=== PATIENT | female | born 1965 | race Hispanic/Latino ===

== ENCOUNTER 2023-05-19 09:19 | Emergency (ER) | payer SELFPAY ==
[2023-05-19 10:08] LABS: Absolute Lymphocytes (CBC) 1.4 K/uL (0.7-4.9); Hematocrit 40.8 % (36.0-45.0); Lymphocytes % 21.8 % (15.3-44.8); MPV 9.7 fL (7.6-11.3)
[2023-05-19 10:14] LABS: Protime INR 1.08
[2023-05-19 10:28] LABS: Magnesium 2.1 mg/dL (1.6-2.4); Potassium 3.7 mEq/L (3.5-5.1); Troponin High Sensitivity 5.4 pg/mL (<58.9)
[2023-05-19 11:06] LABS: Specific Gravity 1.019 (1.005-1.030); Urine Bacteria None Seen /HPF (<20); Urine Bilirubin NEGATIVE (Negative); Urine Blood 1+ (Negative); Urine Clarity Clear (Clear); Urine Color Colorless (Yellow); Urine Glucose NEGATIVE (Negative); Urine Protein NEGATIVE (Negative); Urine RBC <5 /HPF (None Seen); Urine Urobilinogen Normal (Normal)
--- NOTE | 2023-05-19 11:09 | RAD REPORT ---
EXAM DESCRIPTION: CT - Angio Aorta For Dissection - 05/19/2023 10:39 am CLINICAL HISTORY: . Chest and abd pain COMPARISON: None TECHNIQUE: Computed tomography angiography of the chest, abdomen pelvis were obtained. 100 cc Isovue 370 was administered intravenously. Coronal and sagittal reconstruction were performed. MIP 3D reconstruction was performed All CT scans are performed using dose optimization technique as appropriate and may include automated exposure control or mA/KV adjustment according to patient size. FINDINGS: An aortic dissection is not seen. An aortic aneurysm is not displayed. The aorta is tortu ous The celiac, SMA and JUWAN are patent . A lung consolidation is not present. A pericardial effusion is not seen. A pleural effusion is not no citlali. The liver,spleen, pancreas,adrenals and kidneys demonstrate no significant abnormality. There appear to be a left upper quadrant coils perhaps within splenic artery There no evidence diverticulitis. Normal appendix IMPRESSION: Negative for an aortic dissection.
[2023-05-19 11:11] LABS: Barbiturates NEGATIVE (NEGATIVE); Benzodiazepines NEGATIVE (NEGATIVE); Cocaine NEGATIVE (NEGATIVE); METHAMPHETAM NEGATIVE (NEGATIVE); Methadone NEGATIVE (NEGATIVE); Opiates NEGATIVE (NEGATIVE); Phencyclidine NEGATIVE (NEGATIVE); THC Cannibis NEGATIVE (NEGATIVE)
--- NOTE | 2023-05-19 11:11 | RAD REPORT ---
EXAM DESCRIPTION: [facility] Single View05/19/2023 10:40 am CLINICAL HISTORY: Chest pain COMPARISON: none FINDINGS: The lungs appear clear of acute infiltrate. The heart is normal size. Aorta is tortuous IMPRESSION: No acute abnormalities displayed
--- NOTE | 2023-05-19 11:38 | ER ---
Nurse's Notes [facility] Name: Irena Zapata Age: 58 yrs Sex: Female : 1965 Arrival Date: 05/19/2023 Time: 09:19 Bed 20 Private MD: Diagnosis: Chest pain, unspecified Presentation: 05/19 09:23 Chief complaint: EMS states: CHEST PAIN SINCE 0800. Coronavirus screen: At this time, bp the client does not indicate any symptoms associated with coronavirus-19. Ebola Screen: No symptoms or risks identified at this time. Initial Sepsis Screen: Does the patient meet any 2 criteria? No. Patient's initial sepsis screen is negative. Does the patient have a suspected source of infection? No. Patient's initial sepsis screen is negative. Risk Assessment: Do you want to hurt yourself or someone else? Patient reports no desire to harm self or others. Onset of symptoms was May 19, 2023 at 08:00. 09:23 Method Of Arrival: EMS: [facility] bp 09:23 Acuity: MARINA 3 bp Triage Assessment: : General: Appears in no apparent distress. Behavior is calm, cooperative, appropriate bp for age. Pain: Complains of pain in chest. EENT: No deficits noted. Neuro: No deficits noted. Cardiovascular: Reports chest pain. Respiratory: No deficits noted. GI: No signs and/or symptoms were reported involving the gastrointestinal system. : No signs and/or symptoms were reported regarding the genitourinary system. Derm: No deficits noted. Musculoskeletal: No deficits noted. Historical: - Allergies: :24 No Known Allergies; bp - Home Meds: : Unable to obtain [Active]; bp - PMHx: :24 Cerebrovascular accident; Arthritis; Hypertensive disorder; bp - Immunization history:: Adult Immunizations up to date. - Social history:: Smoking status: Patient denies any tobacco usage or history of. Screenin: [facility] ED Fall Risk Assessment (Adult) History of falling in the last 3 months, bp including since admission No falls in past 3 months (0 pts). Abuse screen: Denies threats or abuse. Denies injuries from another. Nutritional screening: No deficits noted. Tuberculosis screening: No symptoms or risk factors identified. Assessment: : General: SEE TRIAGE NOTE. bp 11:23 Reassessment: Patient appears in no apparent distress at this time. Patient is alert, bp oriented x 3, equal unlabored respirations, skin warm/dry/pink. Vital Signs: 09:23 BP 110 / 87; Pulse 67; Resp 16; Temp 98.3; Pulse Ox 96% ; bp 11:23 BP 140 / 104; Pulse 62; Resp 16; Pulse Ox 100% ; bp ED Course: 09:22 Patient arrived in ED. bp 09:22 Leatha Driver PA-C is PHCP. sb4 09:22 Jose Spicer MD is Attending Physician. sb4 09:24 Triage completed. bp 09:24 Arm band placed on. bp 09:25 EKG done, by ED staff, reviewed by Leatha Driver PA-C. em1 09:26 Mich Junior, RN is Primary Nurse. bp 09:26 Patient has correct armband on for positive identification. Bed in low position. Call bp light in reach. Side rails up X2. Client placed on continuous cardiac and pulse oximetry monitoring. NIBP monitoring applied. 09:59 Inserted saline lock: 20 gauge in right antecubital area, using aseptic technique. bp Blood collected. 10:41 CT Aorta for Dissection In Process Unspecified. EDMS 10:42 XRAY Chest (1 view) In Process Unspecified. EDMS 11:55 No provider procedures requiring assistance completed. IV discontinued, intact, bp bleeding controlled, No redness/swelling at site. Pressure dressing applied. Patient maintains SpO2 saturation greater than 95% on room air. Administered Medications: 11:45 Drug: Ibuprofen PO 800 mg Route: PO; bp 11:57 Follow up: Response: No adverse reaction bp Medication: 11:55 VIS not applicable for this client. bp Outcome: 11:38 Discharge ordered by . sb4 11:55 Discharged to home ambulatory. bp 11:55 Condition: stable 11:55 Discharge instructions given to patient, Instructed on discharge instructions, follow up and referral plans. Demonstrated understanding of instructions, follow-up care. 11:57 Patient left the ED. bp Signatures: Dispatcher [employer] EDMS Garrett Hilton em1 Mich Junior, RN RN Leatha Alvarado PA-C PA-C sb4
--- NOTE | 2023-05-19 11:38 | EDPHYS ---
Physician Documentation [facility] Name: Irena Zapata Age: 58 yrs Sex: Female : 1965 Arrival Date: 05/19/2023 Time: 09:19 Bed 20 Private MD: ED Physician Jose Spicer HPI: 05/19 09:33 This 58 yrs old Female presents to ER via EMS with complaints of Chest Pain. sb4 09:33 Onset: The symptoms/episode began/occurred last night. Associated signs and symptoms: sb4 The patient has no apparent associated signs or symptoms. Modifying factors: The patient symptoms are alleviated by remaining still, rest, the patient symptoms are aggravated by stimulation. The patient has not experienced similar symptoms in the past. The patient has not recently seen a physician. 14:05 58 year old female states she started experiencing left sided chest pain last night sb4 that felt like a stabbing sensation. She additionally reports a burning feeling in between her shoulder blades. She states the chest pain has resolved but the burning sensation is lingering. Historical: - Allergies: 09:24 No Known Allergies; bp - Home Meds: 09:24 Unable to obtain [Active]; bp - PMHx: 09:24 Cerebrovascular accident; Arthritis; Hypertensive disorder; bp - Immunization history:: Adult Immunizations up to date. - Social history:: Smoking status: Patient denies any tobacco usage or history of. ROS: 09:33 Constitutional: Negative for fever, chills, and weight loss, Eyes: Negative for injury, sb4 pain, redness, and discharge, Respiratory: Negative for shortness of breath, cough, wheezing, and pleuritic chest pain, Abdomen/GI: Negative for abdominal pain, nausea, vomiting, diarrhea, and constipation, MS/Extremity: Negative for injury and deformity, Skin: Negative for injury, rash, and discoloration, Neuro: Negative for headache, weakness, numbness, tingling, and seizure. 09:33 Cardiovascular: Positive for chest pain, Negative for edema, orthopnea, palpitations. Exam: 09:33 Constitutional: This is a well developed, well nourished patient who is awake, alert, sb4 and in no acute distress. Head/Face: Normocephalic, atraumatic. Eyes: Extra-ocular motions intact. Periorbital areas with no swelling, redness, or edema. ENT: Mucous membranes moist. Cardiovascular: Regular rate and rhythm with a normal S1 and S2. Respiratory: Lungs have equal breath sounds bilaterally, clear to auscultation and percussion. No rales, rhonchi or wheezes noted. No increased work of breathing, no retractions or nasal flaring. Abdomen/GI: Soft, non-tender, no distension. Skin: Warm, dry with normal turgor. Normal color with no rashes, no lesions, and no evidence of cellulitis. MS/ Extremity: Pulses equal, no cyanosis. Neurovascular intact. Full, normal range of motion. Neuro: Awake and alert, GCS 15, oriented to person, place, time, and situation. Cranial nerves II-XII grossly intact. Motor strength 5/5 in all extremities. Sensory grossly intact. Cerebellar exam normal. Normal gait. Vital Signs: 09:23 BP 110 / 87; Pulse 67; Resp 16; Temp 98.3; Pulse Ox 96% ; bp 11:23 BP 140 / 104; Pulse 62; Resp 16; Pulse Ox 100% ; bp MDM: 09:22 Patient medically screened. sb4 09:35 Differential diagnosis: anxiety, angina, ME, aortic dissection. sb4 11:36 Data reviewed: vital signs, nurses notes, lab test result(s), EKG, radiologic studies, sb4 and as a result, I will discharge patient. Consideration of Admission/Observation Escalation of care including admission/observation considered. Care significantly affected by the following chronic conditions: Hypertension, PTSD. Care significantly affected by the following Social Determinants of Health: Misuse of alcohol and/or drugs, Problems related to primary support group. Scoring Tools HEART Score: History: ECG: Age: Risk Factors: 1 or 2 risk factors (1), Troponin: Total Score = 2. Counseling: I had a detailed discussion with the patient and/or guardian regarding: the historical points, exam findings, and any diagnostic results supporting the discharge/admit diagnosis, lab results, radiology results, the need for outpatient follow up, a mobile application architect, to return to the emergency department if symptoms worsen or persist or if there are any questions or concerns that arise at home. Special discussion: Based on the patient's history, exam, and Dx evaluation, there is no indication for emergent intervention or inpatient Tx. It is understood by the patient/guardian that if the Sx's persist or worsen they need to return immediately for re-evaluation. 05/19 09:42 Order name: Basic Metabolic Panel; Complete Time: 10:30 bp 05/19 09:42 Order name: CBC with Diff; Complete Time: 10:16 bp 05/19 09:42 Order name: PT-INR; Complete Time: 10:16 bp 05/19 09:42 Order name: Troponin HS; Complete Time: 10:30 bp 05/19 09:58 Order name: UAM; Complete Time: 11:19 sb4 05/19 09:58 Order name: UDS; Complete Time: 11:19 sb4 05/19 10:15 Order name: NT PRO-BNP; Complete Time: 10:30 EDMS 05/19 10:15 Order name: Magnesium; Complete Time: 10:30 EDMS 05/19 09:42 Order name: XRAY Chest (1 view); Complete Time: 11:19 bp 05/19 10:31 Order name: CT Aorta for Dissection; Complete Time: 11:19 sb4 05/19 09:42 Order name: Cardiac monitoring; Complete Time: 09:43 bp 05/19 09:42 Order name: EKG - Nurse/Tech; Complete Time: 09:42 bp 05/19 09:42 Order name: IV Saline Lock; Complete Time: 09:48 bp 05/19 09:42 Order name: Labs collected and sent; Complete Time: 09:48 bp 05/19 09:42 Order name: O2 Per Protocol; Complete Time: 09:42 bp 05/19 09:42 Order name: O2 Sat Monitoring; Complete Time: 09:42 bp Administered Medications: 11:45 Drug: Ibuprofen PO 800 mg Route: PO; bp 11:57 Follow up: Response: No adverse reaction bp Disposition: 13:21 Co-signature as Attending Physician, Jose Spicer MD I agree with the assessment and kdr plan of care. Disposition Summary: 05/19/23 11:38 Discharge Ordered Location: Home sb4 Problem: an ongoing problem sb4 Symptoms: have improved sb4 Condition: Stable sb4 Diagnosis - Chest pain, unspecified sb4 Followup: sb4 - With: Private Physician - When: As needed - Reason: Recheck today's complaints, Continuance of care, Re-evaluation by your physician Discharge Instructions: - Discharge Summary Sheet sb4 - Nonspecific Chest Pain, Adult, [id number] sb4 Forms: - Medication Reconciliation Form sb4 - Thank You Letter sb4 - Antibiotic Education sb4 - Prescription Opioid Use sb4 - Patient Portal Instructions sb4 Signatures: Dispatcher [employer] EDMS Jose Spicer MD MD kdr Peltier, Brian, RN RN Leatha Alvarado, PADianaC PA-C sb4 Corrections: (The following items were deleted from the chart) 10:15 09:58 MAGNESIUM+C.LAB.BRZ ordered. EDMS EDMS 10:15 09:58 PROBNP+C.LAB.BRZ ordered. EDMS EDMS
[2023-05-19] MEDS ORDERED: IBUPROFEN 400 MG TAB ONE (11:58)
[2023-05-19 12:02] VITALS: TEMP 98.3
[2023-05-19 12:04] VITALS: BP 140/104; O2SAT 100
[2023-05-19] MEDS ORDERED: TDAP (DIPHTH,PERTUSS(ACELL),TET VAC) 0.5 ML VIAL IMVAC ONE (14:08)
== END 2023-05-19 11:57 | disposition home or self-care (01) ==
LOC: ER 09:19
DX: R07.89 Other chest pain (principal); I10 Essential (primary) hypertension; Z86.73 Personal history of transient ischemic attack (TIA), and cerebral infarction without residual deficits
CPT/HCPCS: 36415; 71045; 71275; 74175; 80048; 80307; 81001; 83735; 83880; 84484; 85025; 85610; 99285; Q9967